=== PATIENT | female | born 1945 ===

== ENCOUNTER → 2021-04-29 | Outpatient (CLI) | payer OTHER | END | disposition home or self-care (01) | LOC: MRI 13:07 | PROVIDERS: ATTEND Orthopaedic Surgery | DX: M25.561 Pain in right knee (principal); M25.562 Pain in left knee; M19.09 Primary osteoarthritis, other specified site | CPT/HCPCS: 73721 ==

== ENCOUNTER 2021-09-09 11:04 | Outpatient (CLI) | payer OTHER | END 2021-09-09 11:10 | disposition home or self-care (01) | LOC: MRI 11:04 | PROVIDERS: ATTEND Neuromusculoskeletal Medicine & OMM | DX: R25.1 Tremor, unspecified (principal); D32.0 Benign neoplasm of cerebral meninges | CPT/HCPCS: 70551; 72141 ==

== ENCOUNTER 2021-12-02 12:47 | Outpatient (CLI) | payer OTHER | END 2021-12-02 13:01 | disposition home or self-care (01) | LOC: MRI 12:47 | PROVIDERS: ATTEND Neuromusculoskeletal Medicine & OMM | DX: M51.26 Other intervertebral disc displacement, lumbar region (principal); M51.36 Other intervertebral disc degeneration, lumbar region | CPT/HCPCS: 72148 ==

== ENCOUNTER 2022-06-09 12:03 | Outpatient (CLI) | payer OTHER | END 2022-06-09 12:10 | disposition home or self-care (01) | LOC: RAD 12:03 | PROVIDERS: ATTEND Chiropractor | DX: M99.01 Segmental and somatic dysfunction of cervical region (principal); M99.02 Segmental and somatic dysfunction of thoracic region; M99.03 Segmental and somatic dysfunction of lumbar region; M99.04 Segmental and somatic dysfunction of sacral region; M99.05 Segmental and somatic dysfunction of pelvic region; M25.561 Pain in right knee; M25.562 Pain in left knee ==

== ENCOUNTER 2022-09-09 13:14 | Outpatient (CLI) | payer OTHER | END 2022-09-09 13:35 | disposition home or self-care (01) | LOC: MRI 13:14 | PROVIDERS: ATTEND Neuromusculoskeletal Medicine & OMM | DX: D32.0 Benign neoplasm of cerebral meninges (principal) | CPT/HCPCS: 70551 ==